=== PATIENT | female | born 1980 | race Caucasian/White ===

== ENCOUNTER 2023-04-20 05:05 | Day surgery (SDC) | payer OTHER ==
[~2023-04-20] VITALS: Ht 147.3 cm; Wt 68.9 kg
[~2023-04-20 05:05] MED LIST: SYNTHROID88 MCG PO
== END 2023-04-20 15:00 | disposition home or self-care (01) ==
LOC: CIR.AMB 05:05
PROVIDERS: ATTEND Obstetrics & Gynecology
DX: N93.8 Other specified abnormal uterine and vaginal bleeding (principal); Z20.822 Contact with and (suspected) exposure to COVID-19; Z88.6 Allergy status to analgesic agent

== ENCOUNTER 2023-07-02 08:49 | Inpatient (IN) | payer OTHER ==
[~2023-07-02] VITALS: Ht 147.3 cm; Wt 68.0 kg
[2023-07-03] MEDS ORDERED: MEGESTROL ACETA40 MG PO (09:45)
[2023-07-06] MEDS ORDERED: SYNTHROID75 MCG (07:58)
[2023-07-06] MEDS ORDERED: CITALOPRAM HBR10 MG (07:58)
[2023-07-08] MEDS ORDERED: PAIN RELIEVER500 M2 PO (06:48)
[2023-07-08] MEDS ORDERED: SIMETHICONE125 M1 PO (06:48)
[2023-07-08] MEDS ORDERED: POLY119PG PO (06:48)
[2023-07-08] MEDS ORDERED: GABAPENTIN300 MG PO (06:48)
== END 2023-07-08 10:23 | disposition home or self-care (01) | DRG 743 ==
LOC: O/R 07-06 05:23 → OB/GYN 07-06 05:23
PROVIDERS: ADMIT Obstetrics & Gynecology; ATTEND Obstetrics & Gynecology
PROC: 0UT60ZZ Resection of Left Fallopian Tube, Open Approach (ICD-10-PCS; 2023-07-06)
PROC: 0UT10ZZ Resection of Left Ovary, Open Approach (ICD-10-PCS; 2023-07-06)
PROC: 0UT90ZZ Resection of Uterus, Open Approach (ICD-10-PCS; principal; 2023-07-06 07:00)
DX: D25.1 Intramural leiomyoma of uterus (principal); D25.2 Subserosal leiomyoma of uterus; D25.0 Submucous leiomyoma of uterus; Z20.822 Contact with and (suspected) exposure to COVID-19